=== PATIENT | male | born 1990 | race Caucasian/White ===

== ENCOUNTER 2024-11-29 15:57 | Emergency (ER) | payer OTHER, BC, SELFPAY ==
[2024-11-29 16:18] VITALS: BP 115/75; PULSE 95; RESP 20; TEMP 37; O2SAT 97; BMI 30.3
--- NOTE | 2024-11-29 16:26 | DI.RAD.S_ITS ---
PROCEDURE: XR HAND LT MIN 3V INDICATIONS: crush injury TECHNIQUE: 3 views of the hand(s) acquired. COMPARISON: [facility], CR, FINGER(S) MIN 2VW, 01/25/2015, 8:30. [facility], CR, XR HAND RT MIN 3V, 11/29/2024, 16:28. FINDINGS: Bones: Minimally displaced fracture involving the distal tuft of the left 3rd finger distal phalanx. Chronic appearing fracture nonunion involving the distal phalanx of the 2nd finger. Remainder of the visualized osseous structures appear intact. No suspicious osseous lesions. Soft tissues: No suspicious soft tissue calcifications. IMPRESSION: Minimally displaced fracture of the left 3rd finger distal phalanx. 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 Dictated by: Vijay Rincon M.D. on 11/29/2024 at 17:32 Approved by: Vijay Rincon M.D. on 11/29/2024 at 17:34
--- NOTE | 2024-11-29 16:26 | DI.RAD.S_ITS ---
PROCEDURE: XR HAND RT MIN 3V INDICATIONS: crush injury TECHNIQUE: 3 views of the hand(s) acquired. COMPARISON: None. FINDINGS: Bones: Minimally displaced fracture involving the distal phalanx of the right 5th finger. Remainder of the visualized osseous structures appear intact. Soft tissues: No suspicious soft tissue calcifications. IMPRESSION: Minimally displaced right 5th finger distal phalanx fracture. Dictated by: Vijay Rincon M.D. on 11/29/2024 at 17:36 Approved by: Vijay Rincon M.D. on 11/29/2024 at 17:36
[2024-11-29] MEDS: OXYCODONE/ACETAMINOPHEN 5/325 TABLET 1 TAB PO (17:55)
--- NOTE | 2024-11-29 18:13 | ED_ITS ---
<Statement entered by David Copeland DO - 11/29/24 19:59> Dr. Copeland: I was immediately available in the department for consultation. I did not actually see the patient. HPI - Extremity Injury (Upper) General Chief Complaint: Extremity Injury, Upper Stated Complaint: smashes both hands, fingers bleeding Time Seen by Provider: 11/29/24 16:51 History of Present Illness HPI narrative: 34-year-old male presents to the ED status post bilateral hand injuries s ustained at work just prior to arrival. Patient has suffered a crush injury to some fingers when a field more fell off the [place] and smashed his left middle finger and right pinky fingers. Patient presents to the ED bandaged and bleeding is controlled. Patient reports 6/10 pain. No numbness, tingling, weakness. Tetanus is not up-to-date. Related Data Previous Rx's Medication Instructions Recorded cephalexin 500 mg capsule 500 mg PO QID 10 days #40 caps 11/29/24 oxycodone-acetaminophen 5 mg-325 1 tab PO Q6H PRN pain #14 tabs 11/29/24 mg tablet (Percocet) Allergies Allergy/AdvReac Type Severity Reaction Status Date / Time No Known Drug Allergies Allergy Verified 11/29/24 19:08 Review of Systems Constitutional Constitutional: Denies chills, Denies fatigue, Denies fever(s), Denies frequent falls, Denies lethargy and Denies weakness Eyes Eyes: Denies change in vision, Denies eye discharge, Denies irritation and Denies loss of vision ENT Ears, Nose, Mouth, and Throat: Denies change in voice, Denies dizziness, Denies neck pain, Denies sore throat and Denies throat swelling Cardiovascular Cardiovascular: Denies chest pain, Denies irregular heart rhythm, Denies lightheadedness, Denies palpitations, Denies dyspnea, Denies dyspnea on exertion and Denies orthopnea Respiratory Respiratory: Denies cough, Denies dyspnea, Denies dyspnea on exertion and Denies wheezing Gastrointestinal Gastrointestinal: Denies abdominal pain, Denies change in bowel habits, Denies diarrhea, Denies nausea and Denies vomiting Musculoskeletal Musculoskeletal: Denies neck pain and Denies numbness Integumentary/Breasts Skin/Breast: Denies pruritus, Denies erythema, Denies rash and Reports wounds Comments: Right hand pinky finger distal laceration and injury; left hand middle finger distal laceration injury Neurologic Neurologic: Denies behavioral changes, Denies confusion, Denies dizziness, Denies frequent falls, Denies loss of vision, Denies numbness and Denies weakness Psychiatric Psychiatric: Denies anxiety, Denies behavioral changes, Denies confusion, Denies depression, Denies homicidal ideation and Denies suicidal ideation Endocrine Endocrine: Denies fatigue, Denies flushing and Denies palpitations Hematologic/Lymphatic Hematologic/Lymphatic: Denies easy bruising Allergic/Immunologic Allergic/Immunologic: Denies urticaria, Denies throat swelling and Denies wheez ing Patient History tobacco type: smokeless tobacco Exam Narrative Exam Narrative: Const General:?cooperative, healthy appearing and comfortable HENAL Head:?normal to inspection Ears:?hearing grossly normal bilaterally Nose:?external nose normal Face and sinus:?normal facial exam and sinuses nontender Mouth:?oral mucosae normal Throat:?posterior oropharynx normal Eyes General:?appearance normal, both eyes and all related structures Neck Neck:?normal visual inspection and no lymphadenopathy noted Resp Effort & Inspection:?normal respiratory effort Auscultation:?clear to auscultation bilaterally Cardio Rate:?regular rate Rhythm:?regular rhythm Musculoskeletal/integumentary Right pinky finger appears to have a tuft fracture, transverse laceration. Left middle finger has a transverse laceration, also with a tuft fracture. Neurovascularly intact. Strength and sensation is intact. Neuro General:?patient alert, patient awake and patient oriented x3 Initial Vital Signs Initial Vital Signs: Vital Signs Temperature 98.6 F 11/29/24 16:18 Pulse Rate 95 H 11/29/24 16:18 Respiratory Rate 20 11/29/24 16:18 Blood Pressure 115/75 11/29/24 16:18 Pulse Oximetry 97 11/29/24 16:18 Oxygen Delivery Method Room Air 11/29/24 16:18 Procedures Laceration Repair Laceration 1: Site: hand Side (If applicable): left Size (cm): 0.5 Description: linear Local Anesthetic: lidocaine 1% Amount of anesthesia used (mL): 2 Pre-repair: wound explored, irrigated extensively and deep structures intact Skin layer closed with: nylon Skin layer suture size: 4-0 Number of sutures: 1 Technique: simple, interrupted Laceration 2: Site: hand Side (If applicable): right Size (cm): 1 Description: linear Local Anesthetic: lidocaine 1% Amount of anesthesia used (mL): 2 Pre-repair: wound explored and irrigated extensively Skin layer closed with: nylon Skin layer suture size: 4-0 Number of sutures: 4 Technique: simple, interrupted Course Orders Ordered: ED Orders 11/29/24 16:26 XR hand LT min 3V Stat XR hand RT min 3V Stat Discontinued Medications Bacitracin (Bacitracin Oint 0.9 Gm Pckt) 1 applic TOP NOW ONE Stop: 11/29/24 19:10 Diphtheria/Tetanus/Acell Pertussis (Tet,Diph,Pertuss(Acell),Vac/Pf 0.5 Ml Syringe) 0.5 ml IM .ONCE ONE Stop: 11/29/24 18:11 Last Admin: 11/29/24 18:20 Dose: 0.5 ml Documented By: BRIAN Oxycodone/Acetaminophen (Oxycodone/Acetaminophen 5/325 Tablet) 1 tab PO NOW ONE Stop: 11/29/24 17:50 Last Admin: 11/29/24 17:55 Dose: 1 tab Documented By: BRIAN Tetanus/Diphtheria Toxoids (Tetanus Diphtheria Toxoids 0.5 Ml Vial) 0.5 ml IM .ONCE ONE Stop: 11/29/24 17:57 Last Admin: 11/29/24 17:58 Dose: Not Given Documented By: BRIAN Vital Signs Vital signs: Vital Signs - 8 hr 11/29/24 16:18 Temperature 98.6 F Pulse Rate 95 H Respiratory Rate 20 Blood Pressure 115/75 Pulse Oximetry 97 Oxygen Delivery Method Room Air MDM - Extremity Injury (Upper) MDM Narrative Medical decision making narrative: 34-year-old male presents to the ED status post bilateral hand injuries sustained at work just prior to arrival. Concern for fracture/dislocation versus laceration versus musculoskeletal sprain/strain versus other. Will update tetanus. Will obtain x-rays. Will repair lacerations. Digital block applied to digit 5 of the right hand, digit 3 of the left hand. Patient given a Percocet for pain control. X-ray of the right hand shows a minimally displaced right 5th finger distal phalanx fracture. X-ray of the left hand shows a minimally displaced fracture of the left 3rd finger distal phalanx. 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 Tetanus has been updated. Lacerations repaired with sutures. Pain medication and antibiotics prescribed. Medical records reviewed: Yes Discharge Plan Departure Patient Disposition: Home Clinical Impression: Open fracture of tuft of distal phalanx of finger Instructions: DI for Finger Fracture Activity Restrictions/Additional Instructions: You were evaluated in the ED today for finger injuries. Your x-ray showed that you have a fracture to the tip of your right pinky finger as well as the tip of the left middle finger. Your lacerations were repaired with sutures today. The sutures will need to be removed in 7-10 days. You may return to the ED, go to your PCP's office or an urgent care or walk-in clinic to get the sutures removed. You were also being prescribed antibiotics since this is an open fracture. Your tetanus was updated. Your fingers have been bandaged and splinted. You may continue to keep your fingers clean and dry and splinted to aid good healing. Please monitor for any signs of infection including worsening redness, swelling, pain, discharge, warmth. Return to the ED if you note any signs of infection. Please also follow-up with ortho as soon as possible. Prescriptions: New cephalexin 500 mg capsule 500 mg PO QID 10 Days Qty: 40 0RF oxycodone-acetaminophen [Percocet] 5-325 mg tablet 1 tab PO Q6H PRN (Reason: pain) Qty: 14 0RF Stand Alone Forms: Patient Portal/API/Survey
[2024-11-29] MEDS: TET,DIPH,PERTUSS(ACELL),VAC/PF 0.5 ML SYRINGE IM (18:20)
--- NOTE | 2024-11-29 19:07 | PC.NURSE ---
Patient fingers and hands scrubbed and cleaned prior to being sutured and splinted.
[2024-11-29 19:22] VITALS: BP 130/83; PULSE 84; RESP 16; TEMP 36.8; O2SAT 97
[2024-11-29] MEDS: BACITRACIN OINT 0.9 GM PCKT 1 APPLIC TOP (19:22)
== END 2024-11-29 19:25 | disposition home or self-care (01) ==
PROVIDERS: Emergency Provider Student in an Organized Health Care Education/Training Program
DX: S62.633A Displaced fracture of distal phalanx of left middle finger, initial encounter for closed fracture (principal); S62.631A Displaced fracture of distal phalanx of left index finger, initial encounter for closed fracture; S62.636A Displaced fracture of distal phalanx of right little finger, initial encounter for closed fracture; W23.0XXA Caught, crushed, jammed, or pinched between moving objects, initial encounter; Z23 Encounter for immunization
CPT/HCPCS: 12001; 73130; 90471; 99283; 90715